=== PATIENT | male | born 1935 | race Caucasian/White ===

== ENCOUNTER 2023-10-22 14:10 | Emergency (ER) | payer OTHER ==
[~2023-10-22] VITALS: Ht 177.8 cm; Wt 91.6 kg
[~2023-10-22 14:10] MED LIST: VISTARIL25 MG PO
[2023-10-22 14:56] LABS: BILIRUBIN Negative (Negative); BLOOD 2+ (Negative); CLARITY Cloudy (Clear); COLOR Yellow (Yellow); GLUCOSE 3+ (Negative); KETONE Negative (Negative); LEUKO ESTERASE 1+ (Negative); NITRITE Positive (Negative); PH 5.5 (4.5-8.0); SPECIFIC GRAVITY 1.025 (1.001-1.030); UROBILINOGEN 0.2 E.U./dl (0.0-1.0)
[2023-10-22 14:59] LABS: BASO % 0.4 % (0.0-1.0); EOS # 0.1 10*3/uL (0.0-0.4); EOS % 1.2 % (1.0-4.0); HEMATOCRIT 47.4 % (42.0-52.0); LYMPH # 0.5 10*3/uL (1.3-4.4); LYMPH % 5.8 % (27.0-41.0); MEAN CORPUSCULAR HGB 29.2 pg (27.0-31.0); MEAN PLATELET VOLUME 9.5 fl (9.6-12.3); MONO # 0.6 10*3/uL (0.1-1.0); MONO % 7.1 % (3.0-9.0); NEUT # 6.6 10*3/uL (2.3-7.9); PLATELET COUNT AUTOMATED 202 10*3/uL (130-400); RED BLOOD COUNT 5.04 10*6/uL (4.50-5.90); RED CELL DISTRI WIDTH 14.2 % (0-14.5); WHITE BLOOD COUNT 7.7 10*3/uL (4.8-10.8)
[2023-10-22 15:02] VITALS: BP 157/78
[2023-10-22 15:04] LABS: URINE AMPHETAMINES Negative (1000ng/ml); URINE BARBITURATES Negative (200ng/ml); URINE BENZODIAZEPINES Negative (200ng/ml); URINE CANNABINOIDS (THC) Negative (50ng/ml); URINE COCAINE Negative (300ng/ml); URINE METHADONE Negative (300ng/ml); URINE OPIATES Negative (300ng/ml); URINE PHENCYCLIDINE Negative (25ng/ml)
[2023-10-22] MEDS ORDERED: SODIUM CHLORIDE 0.9% 100 ML BAG IV ONE (15:10)
[2023-10-22] MEDS ORDERED: IOHEXOL 350 MG/ML 100 ML VIAL IV ONE (15:10)
[2023-10-22 15:11] LABS: ACT PARTIAL THROMBO TIME 24.3 SECONDS (20.0-32.1)
[2023-10-22 15:18] LABS: BACTERIA 2+; WBC 51-100 wbc/hpf (0-5)
[2023-10-22 15:26] LABS: ALKALINE PHOSPHATASE 135 U/L (46-116); BUN 7 mg/dl (9-23); CHLORIDE 105 mmol/L (98-107); POTASSIUM 3.8 mmol/L (3.4-5.1); SGPT/ALT 21 U/L (5-49); TOTAL PROTEIN 6.8 gm/dL (6.0-8.0)
[2023-10-22 16:11] VITALS: BP 147/89
[2023-10-22] MEDS ORDERED: VESICARE5 MG PO (16:13)
[2023-10-22] MEDS ORDERED: METOPROLOL TART50 M1 PO (16:13)
[2023-10-22] MEDS ORDERED: ASPIRIN81 M1 PO (16:13)
[2023-10-22] MEDS ORDERED: MYRBETRIQ25 M1 PO (16:14)
[2023-10-22] MEDS ORDERED: LIPITOR80 MG PO (16:14)
[2023-10-22] MEDS ORDERED: JARDIANCE10 MG PO (16:15)
[2023-10-22] MEDS ORDERED: PLAVIX75 M1 PO (16:15)
[2023-10-22] MEDS ORDERED: FINASTERIDE5 M1 PO (16:16)
[2023-10-22] MEDS ORDERED: PROTONIX40 M2 PO (16:16)
[2023-10-22] MEDS ORDERED: LOSARTAN POTASS50 M1 PO (16:17)
[2023-10-22 18:00] VITALS: BP 119/50
[2023-10-22] MEDS ORDERED: Ceftriaxone Sodium 1 GM/10 ML SYR IV ONE (18:05)
[2023-10-22] MEDS ORDERED: SODIUM CHLORIDE 0.9% 1,000 ML IV ONE ×3 (18:05→19:10)
[2023-10-22] MEDS ORDERED: DIAZEPAM 10 MG/2 ML SYR IV ONE (18:25)
[2023-10-22] MEDS ORDERED: ACETAMINOPHEN 325 MG TAB PO ONE ×2 (18:35→18:40)
[2023-10-22 20:00] VITALS: BP 111/48
[2023-10-22] MEDS ORDERED: Vancomycin Hydrochloride 250 ML IV SCH (20:00)
[2023-10-22] MEDS ORDERED: NOREPINEPHRINE BITARTRATE/D5W 250 ML IV SCH (23:10)
[2023-10-22] MEDS ORDERED: SODIUM CHLORIDE 0.9% 500 ML IV ONE (23:15)
[2023-10-22 23:18] VITALS: BP 97/48
[2023-10-23] VITALS (31 sets, daily range): BP systolic 81–117; BP diastolic 40–66
[2023-10-23] MEDS ORDERED: Piperacillin Sodium/Tazobact 50 ML IV SCH
[2023-10-23] MEDS ORDERED: Ketorolac Tromethamine 30 MG/ML VIAL IV ONE (00:30)
[2023-10-23] MEDS ORDERED: NOREPINEPHRINE BITARTRATE/D5W 250 ML IV ONE (00:31)
[2023-10-23] MEDS ORDERED: METFORMIN HYDR500 MG PO ×2 (05:16→05:17)
[2023-10-23] MEDS ORDERED: Piperacillin Sodium/Tazobact 50 ML IV ONE (06:40)
== END 2023-10-23 08:11 | disposition short-term general hospital (02) ==
LOC: ED 14:10 → EDHOLD 18:13 → ED 18:13
PROVIDERS: Internal Medicine
DX: I63.9 Cerebral infarction, unspecified (principal); G93.40 Encephalopathy, unspecified; N39.0 Urinary tract infection, site not specified; I10 Essential (primary) hypertension; E11.9 Type 2 diabetes mellitus without complications; Z91.040 Latex allergy status; Z98.890 Other specified postprocedural states; Z79.899 Other long term (current) drug therapy